=== PATIENT | female | born 1995 | race Caucasian/White ===

== ENCOUNTER 2016-12-14 18:43 | Emergency (ER) | payer MEDICAID ==
[~2016-12-14] VITALS: Ht 170.2 cm; Wt 59.1 kg
[~2016-12-14 18:43] MED LIST: DEPO400I IM; IBUP-232 PO; OSEL75 PO; ZOFR4TAB3 SL
[2016-12-14 18:52] VITALS: BP 136/77; PULSE 77; RESP 16; TEMP 98.9; O2SAT 100
[2016-12-14] MEDS ORDERED: SODIUM CHLOR 0.9% 1000 ML INJ 1,000 ML IV SCH (19:08)
[2016-12-14 19:13] VITALS: O2SAT 100
--- NOTE | 2016-12-14 19:13 | PD ---
HPI Chief Complaint: Abdominal Pain Time Seen by Provider: 19:03 Travel History International Travel<30 days: No Contact w/Intl Traveler<30days: No Traveled to known affect area: No History of Present Illness HPI The patient is a 21-year-old female who complains of midline epigastric pain with some minimal pain in the lower quadrants as well along with vomiting for 3 days. She states she vomited in the car on the way here. She is not nauseated now. She states she is able to hold down clear liquids. She does not feel dehydrated. She denies any fever or diarrhea. She denies any blood in the vomitus or stool. She is no longer on the Depo-Provera shot. Her last menstrual period ended yesterday and she does not believe she is . She denies any major medical problems. [facility] Past Medical History Diabetes: No Diminished Hearing: No Immunizations Current: Yes Thyroid Disease: No ?: Not LMP: 12/08/16 : 1 Para: 1 Past Surgical History Joint Replacement: No Pacemaker: No Other Surgery: Yes (MOLE REMOVED ON BACK) Social History Alcohol Use: No Tobacco Use: No Substance Use: No Allergies-Medications (Allergen,Severity, Reaction): Coded Allergies: No Known Allergies (Unverified Adverse Reaction, Unknown, 12/14/16) Reported Meds & Prescriptions Reported Meds & Active Scripts Active No Active Prescriptions or Reported Medications Review of Systems Except as stated in HPI: all other systems reviewed are Neg Physical Exam Narrative GENERAL: The patient is alert, oriented 3 and minimal apparent distress with her abdominal discomfort. Her vital signs are normal. SKIN: Focused skin assessment warm/dry. HEAD: Atraumatic. Normocephalic. EYES: Pupils equal and round. No scleral icterus. No injection or drainage. ENT: No nasal bleeding or discharge. Mucous membranes pink and moist. NECK: Trachea midline. No JVD. CARDIOVASCULAR: Regular rate and rhythm. No murmur appreciated. RESPIRATORY: No accessory muscle use. Clear to auscultation. Breath sounds equal bilaterally. GASTROINTESTINAL: Abdomen soft, with minimal tenderness in the midline epigastrium and some minimal tenderness in the left lower quadrant to direct palpation, nondistended. Hepatic and splenic margins not palpable. No guarding or rebound is present. MUSCULOSKELETAL: No obvious deformities. No clubbing. No cyanosis. No edema. NEUROLOGICAL: Awake and alert. No obvious cranial nerve deficits. Motor grossly within normal limits. Normal speech. PSYCHIATRIC: Appropriate mood and affect; insight and judgment normal. Data Data Last Documented VS Vital Signs Date Time Temp Pulse Resp B/P (MAP) Pulse Ox O2 Delivery O2 Flow Rate FiO2 12/14/16 19:13 16 12/14/16 19:13 100 12/14/16 18:52 98.9 77 136/77 (96) Orders Orders Urinalysis - C+S If Indicated (12/14/16 18:47) Ed Urine Pregnancytest Poc (12/14/16 18:47) Beta Hcg (Quant/Titer) (12/14/16 19:08) Complete Blood Count With Diff (12/14/16 19:08) Comprehensive Metabolic Panel (12/14/16 19:08) Lipase (12/14/16 19:08) Iv Access Insert/Monitor (12/14/16 19:08) Ecg Monitoring (12/14/16 19:08) Oximetry (12/14/16 19:08) Ondansetron Inj (Zofran Inj) (12/14/16 19:15) Pantoprazole Inj (Protonix Inj) (12/14/16 19:15) Sodium Chlor 0.9% 1000 Ml Inj (Ns 1000 M (12/14/16 19:08) Sodium Chloride 0.9% Flush (Ns Flush) (12/14/16 19:15) Famotidine Inj (Pepcid Inj) (12/14/16 19:15) Labs Laboratory Tests Test 12/14/16 19:06 12/14/16 19:28 Urine Color YELLOW Urine Turbidity CLEAR Urine pH 6.0 Urine Specific Justice 1.020 Urine Protein NEG mg/dL Urine Glucose (UA) NEG mg/dL Urine Ketones NEG mg/dL Urine Occult Blood SMALL Urine Nitrite NEG Urine Bilirubin NEG Urine Leukocyte Esterase NEG Urine RBC 0-3 /hpf Urine WBC 3-5 /hpf Urine Squamous Epithelial Cells > 8 /hpf Urine Bacteria RARE /hpf Microscopic Urinalysis Comment CULT NOT INDICATED White Blood Count 9.1 TH/MM3 Red Blood Count 4.37 MIL/MM3 Hemoglobin 12.5 GM/DL Hematocrit 36.7 % Mean Corpuscular Volume 84.0 FL Mean Corpuscular Hemoglobin 28.6 PG Mean Corpuscular Hemoglobin Concent 34.0 % Red Cell Distribution Width 13.7 % Platelet Count 293 TH/MM3 Mean Platelet Volume 7.8 FL Neutrophils (%) (Auto) 65.5 % Lymphocytes (%) (Auto) 23.8 % Monocytes (%) (Auto) 8.9 % Eosinophils (%) (Auto) 1.4 % Basophils (%) (Auto) 0.4 % Neutrophils # (Auto) 6.0 TH/MM3 Lymphocytes # (Auto) 2.2 TH/MM3 Monocytes # (Auto) 0.8 TH/MM3 Eosinophils # (Auto) 0.1 TH/MM3 Basophils # (Auto) 0.0 TH/MM3 CBC Comment DIFF FINAL Differential Comment Blood Urea Nitrogen 11 MG/DL Creatinine 0.69 MG/DL Random Glucose 99 MG/DL Total Protein 7.3 GM/DL Albumin 3.9 GM/DL Calcium Level 8.8 MG/DL Alkaline Phosphatase 77 U/L Aspartate Amino Transf (AST/SGOT) 9 U/L Alanine Aminotransferase (ALT/SGPT) 19 U/L Total Bilirubin 0.2 MG/DL Sodium Level 139 MEQ/L Potassium Level 3.9 MEQ/L Chloride Level 104 MEQ/L Carbon Dioxide Level 27.3 MEQ/L Anion Gap 8 MEQ/L Estimat Glomerular Filtration Rate 106 ML/MIN Lipase 175 U/L Human Chorionic Gonadotropin, Quant LESS THAN 1 MIU/ML MDM Medical Decision Making Medical Screen Exam Complete: Yes Emergency Medical Condition: Yes Medical Record Reviewed: Yes Interpretation(s) The urine shows small blood and rare bacteria but is otherwise normal and culture is not indicated. The complete metabolic profile is normal. The beta- hCG is less than 1 and the lipase is normal. The CBC is normal. Differential Diagnosis Gastritis, gastroenteritis, ulcer pain, pancreatitis, electrolyte disorder, colitis, acute appendicitis Narrative Course At this time with a completely soft abdomen and normal blood work acute appendicitis is highly unlikely. Her pain is both in the epigastrium from the vomiting and and the midline lower quadrant. She has no guarding or rebound. This may be a colitis but at this time it is abdominal pain etiology undetermined. The patient was told about the signs and symptoms of appendicitis and return immediately should they occur. Diagnosis Primary Impression: Abdominal pain of unknown etiology Additional Instructions: As we discussed, if the pain suggest towards the right side in the lower quadrant return for reevaluation. If the pain gets worse, also return for reevaluation. The nausea medicine as one tablet every 6 hours as needed. You may need to take this medication every 6 hours to avoid nausea/vomiting. Follow -up with her primary care physician next week. Med/Other Pt SpecificInfo: Prescription(s) given Scripts Ondansetron (Zofran) 4 Mg Tab 4 MG PO Q6HR Y for NAUSEA OR VOMITING, #30 TAB 0 Refills Prov: Tomi Ochoa MD 12/14/16 Disposition: 01 DISCHARGE HOME Condition: Stable Tomi Ochoa MD Dec 14, 2016 19:13
[2016-12-14] MEDS ORDERED: PANTOPRAZOLE SODIUM 40 MG VIAL IVP ONE (19:15)
[2016-12-14] MEDS ORDERED: ONDANSETRON HCL 4 MG/2 ML VIAL IVP ONE (19:15)
[2016-12-14] MEDS ORDERED: FAMOTIDINE 20 MG/2 ML VIAL IV PUSH ONE (19:15)
[2016-12-14] MEDS ORDERED: SODIUM CHLORIDE 0.9% FLUSH 10 ML FLUSH IV FLUSH PRN (19:15)
[2016-12-14 19:25] LABS: BLOOD, URINE SMALL (NEG); GLUCOSE,URINE NEG (NEG); KETONE, URINE NEG (NEG); NITRITE,URINE NEG (NEG)
[2016-12-14 19:31] LABS: URINE COLOR YELLOW (YELLW/STRAW)
[2016-12-14 19:32] LABS: BACTERIA, URINE RARE /hpf; COMMENT (UR) CULT NOT INDICATED; CULTURE IF INDICATED CULT NOT INDICATED; RBC, URINE 0-3 /hpf (0-3); SQUAMOUS EPITHELIAL CELL URINE > 8 /hpf (0-5)
[2016-12-14 19:48] LABS: BASOPHIL % 0.4 % (0.0-2.0); EOSINOPHIL # 0.1 TH/MM3 (0-0.4); EOSINOPHIL % 1.4 % (0.0-4.0); HEMATOCRIT 36.7 % (35.0-46.0); HEMO FLAGS DIFF FINAL; LYMPH % 23.8 % (9.0-44.0); LYMPHOCYTE # 2.2 TH/MM3 (1.0-4.8); MEAN CORPUSCULAR HEMOGLOBIN 28.6 PG (27.0-34.0); MONO % 8.9 % (0.0-8.0); NEUT % 65.5 % (16.0-70.0); PLATELET COUNT 293 TH/MM3 (150-450); RED BLOOD COUNT 4.37 MIL/MM3 (4.00-5.30); RED CELL DISTRIBUTION WIDTH 13.7 % (11.6-17.2); WHITE BLOOD COUNT 9.1 TH/MM3 (4.0-11.0)
[2016-12-14 19:58] LABS: CHLORIDE 104 MEQ/L (98-107); POTASSIUM 3.9 MEQ/L (3.5-5.1); SODIUM (NA) 139 MEQ/L (136-145)
[2016-12-14 20:02] LABS: ANION GAP 8 MEQ/L (5-15); BICARBONATE 27.3 MEQ/L (21.0-32.0); BLOOD UREA NITROGEN 11 MG/DL (7-18)
[2016-12-14 20:04] LABS: ALT (GPT) 19 U/L (10-53)
[2016-12-14 20:05] LABS: AST (GOT) 9 U/L (15-37); GLOMERULAR FILTRATION RATE 106 ML/MIN (>89)
[2016-12-14 20:06] LABS: TOTAL BILIRUBIN ADULT 0.2 MG/DL (0.2-1.0)
[2016-12-14 20:07] LABS: ALKALINE PHOSPHATASE 77 U/L (45-117)
[2016-12-14 20:10] LABS: BETA HCG QUANT LESS THAN 1 MIU/ML (0-5)
[2016-12-14] MEDS ORDERED: ZOFR4TAB PO (20:24)
[2016-12-14 20:56] VITALS: BP 112/66; PULSE 90; RESP 16; TEMP 98.7; O2SAT 100
== END 2016-12-14 21:02 | disposition home or self-care (01) ==
LOC: PHED 18:43
DX: R10.13 Epigastric pain (principal); R11.2 Nausea with vomiting, unspecified
CPT/HCPCS: 80053; 81001; 83690; 84702; 84703; 85025; 96361; 96374; 96375; 99284; C9113; J2405; J7030